=== PATIENT | female | born 1995 | race Caucasian/White ===

== ENCOUNTER 2016-12-18 16:20 | Emergency (ER) | payer OTHER ==
[~2016-12-18] VITALS: Ht 154.9 cm; Wt 67.8 kg
[~2016-12-18 16:20] MED LIST: ALPR0.5T3 PO; DICY1TAB26 PO; PROZ20CA11 PO; ZOFR4TAB3 SL
[2016-12-18 16:28] VITALS: BP 120/81; PULSE 97; RESP 16; TEMP 98.7; O2SAT 97
[2016-12-18 16:59] LABS: BLOOD, URINE TRACE (NEG); GLUCOSE,URINE NEG (NEG); KETONE, URINE NEG (NEG); NITRITE,URINE NEG (NEG); PH, URINE 6.5 (5.0-8.5)
[2016-12-18] MEDS ORDERED: FLUO20CA4 PO (17:01)
[2016-12-18] MEDS ORDERED: ALPR0.5T3 PO (17:01)
[2016-12-18 17:02] LABS: METHOD OF COLLECTION CLEAN CATCH; URINE COLOR YELLOW (YELLW/STRAW)
[2016-12-18 17:04] LABS: COMMENT (UR) CULT NOT INDICATED; CULTURE IF INDICATED CULT NOT INDICATED; RBC, URINE 0-3 /hpf (0-3); SQUAMOUS EPITHELIAL CELL URINE 0-5 /hpf (0-5); WBC, URINE 0-2 /hpf (0-5)
[2016-12-18] MEDS ORDERED: SODIUM CHLOR 0.9% 1000 ML INJ 1,000 ML IV SCH (17:11)
[2016-12-18] MEDS ORDERED: SODIUM CHLORIDE 0.9% FLUSH 5 ML FLUSH IVF PRN (17:15)
--- NOTE | 2016-12-18 17:17 | PD ---
HPI Chief Complaint: Abdominal Pain Time Seen by Provider: 16:52 Travel History International Travel<30 days: No Contact w/Intl Traveler<30days: No Traveled to known affect area: No History of Present Illness HPI Patient is a 21-year-old female who presents to emergency room for evaluation of pelvic pain and cramping for the past 3 days. Patient reports that she has had intermittent pelvic pain and cramping with some vaginal discharge or bleeding for the past 3 days. Patient reports that she is concerned as she had an 3 weeks ago, reports that she has been sexually active and has not been using any form of contraceptives. Patient reports concern that she may be . Patient with no fevers or chills. Patient with no nausea or vomiting. Patient reports that she has been having a few episodes of diarrhea for the past few days. NO sick contacts. No other c/o. PFSH Past Medical History Anxiety: Yes Diminished Hearing: No Genitourinary: Yes (l sided cyst) Headaches: Yes Reproductive: Yes (IRREGULAR PERIODS) Immunizations Current: Yes Influenza Vaccination: No ?: Not LMP: 09/20/16 - Menopausal: No : 1 Para: 0 : 1 Past Surgical History Other Surgery: Yes ( 3 weeks ago) Family History Family History: Negative Social History Alcohol Use: Yes (occ.) Tobacco Use: Yes (1/2ppd) Substance Use: No Allergies-Medications (Allergen,Severity, Reaction): Coded Allergies: Sulfa (Verified Allergy, Severe, Rash, 12/18/16) Reported Meds & Prescriptions Reported Meds & Active Scripts Active Ibuprofen 600 Mg Tab 600 Mg PO Q6H PRN Flagyl (Metronidazole) 500 Mg Tab 500 Mg PO BID 7 Days Reported Fluoxetine (Fluoxetine HCl) 20 Mg Cap 20 Mg PO DAILY Alprazolam 0.5 Mg Tab 0.5 Mg PO Q6H PRN Review of Systems General / Constitutional: No: Fever Eyes: No: Visual changes HENT: No: Headaches Cardiovascular: No: Chest Pain or Discomfort Respiratory: No: Shortness of Breath Gastrointestinal: Positive: Diarrhea, Abdominal Pain, No: Nausea, Vomiting, Constipation Genitourinary: Positive: Pelvic Pain, Discharge, Vaginal Bleeding, No: Urgency , Frequency, Dysuria Musculoskeletal: No: Pain Skin: No Rash Neurologic: No: Weakness Psychiatric: No: Depression Endocrine: No: Polydipsia Hematologic/Lymphatic: No: Easy Bruising Physical Exam Narrative GENERAL: No acute distress, nontoxic SKIN: Warm and dry. HEAD: Atraumatic. Normocephalic. EYES: Pupils equal and round. No scleral icterus. No injection or drainage. ENT: No nasal bleeding or discharge. Mucous membranes pink and moist. NECK: Trachea midline. No JVD. CARDIOVASCULAR: Regular rate and rhythm. No murmur appreciated. RESPIRATORY: No accessory muscle use. Clear to auscultation. Breath sounds equal bilaterally. GASTROINTESTINAL: Abdomen soft, non-tender, nondistended. Patient with increased pelvic tenderness : Exam performed with RN at bedside patient was placed in stirrups, medium speculum in place, there is mild blood around vaginal vault, cervix is closed, no CMT or adnexal tenderness MUSCULOSKELETAL: No obvious deformities. No clubbing. No cyanosis. No edema. NEUROLOGICAL: Awake and alert. Normal speech. PSYCHIATRIC: Appropriate mood and affect; insight and judgment normal. Data Data Last Documented VS Vital Signs Date Time Temp Pulse Resp B/P Pulse Ox O2 Delivery O2 Flow Rate FiO2 12/18/16 16:28 98.7 97 16 120/81 97 Orders Urinalysis - C+S If Indicated (12/18/16 16:35) Ed Urine Pregnancytest Poc (12/18/16 16:36) Complete Blood Count With Diff (12/18/16 17:11) Comprehensive Metabolic Panel (12/18/16 17:11) Prothrombin Time / Inr (Pt) (12/18/16 17:11) Act Partial Throm Time (Ptt) (12/18/16 17:11) Iv Access Insert/Monitor (12/18/16 17:11) Oximetry (12/18/16 17:11) Sodium Chlor 0.9% 1000 Ml Inj (Ns 1000 M (12/18/16 17:11) Sodium Chloride 0.9% Flush (Ns Flush) (12/18/16 17:15) Gc And Chlamydia Pcr (12/18/16 17:13) Wet Prep Profile (12/18/16 17:13) Metronidazole (Flagyl) (12/18/16 18:30) Us Pelvis Comp W Transvaginal (12/18/16 ) Labs Laboratory Tests Test 12/18/16 12/18/16 16:35 17:25 Urine Collection Type CLEAN CATCH Urine Color YELLOW Urine Turbidity CLEAR Urine pH 6.5 Urine Specific [place] 1.010 Urine Protein NEG mg/dL Urine Glucose (UA) NEG mg/dL Urine Ketones NEG mg/dL Urine Occult Blood TRACE Urine Nitrite NEG Urine Bilirubin NEG Urine Leukocyte Esterase NEG Urine RBC 0-3 /hpf Urine WBC 0-2 /hpf Urine Squamous Epithelial 0-5 /hpf Cells Microscopic Urinalysis Comment CULT NOT INDICATED White Blood Count 6.6 TH/MM3 Red Blood Count 5.01 MIL/MM3 Hemoglobin 15.0 GM/DL Hematocrit 42.6 % Mean Corpuscular Volume 85.1 FL Mean Corpuscular Hemoglobin 30.0 PG Mean Corpuscular Hemoglobin 35.2 % Concent Red Cell Distribution Width 12.5 % Platelet Count 221 TH/MM3 Mean Platelet Volume 8.4 FL Neutrophils (%) (Auto) 64.9 % Lymphocytes (%) (Auto) 25.0 % Monocytes (%) (Auto) 6.8 % Eosinophils (%) (Auto) 2.6 % Basophils (%) (Auto) 0.7 % Neutrophils # (Auto) 4.2 TH/MM3 Lymphocytes # (Auto) 1.7 TH/MM3 Monocytes # (Auto) 0.5 TH/MM3 Eosinophils # (Auto) 0.2 TH/MM3 Basophils # (Auto) 0.0 TH/MM3 CBC Comment DIFF FINAL Differential Comment Prothrombin Time 10.8 SEC Prothromb Time International 1.0 RATIO Ratio Activated Partial 30.9 SEC Thromboplast Time Clue Cells (Wet Prep) PRESENT Vaginal Trichomonas (Wet Prep) NONE SEEN Vaginal Yeast (Wet Prep) NONE SEEN Sodium Level 142 MEQ/L Potassium Level 4.4 MEQ/L Chloride Level 107 MEQ/L Carbon Dioxide Level 28.5 MEQ/L Anion Gap 7 MEQ/L Blood Urea Nitrogen 9 MG/DL Creatinine 0.78 MG/DL Estimat Glomerular Filtration 94 ML/MIN Rate Random Glucose 79 MG/DL Calcium Level 8.9 MG/DL Total Bilirubin 0.3 MG/DL Aspartate Amino Transf 15 U/L (AST/SGOT) Alanine Aminotransferase 23 U/L (ALT/SGPT) Alkaline Phosphatase 83 U/L Total Protein 6.8 GM/DL Albumin 3.6 GM/DL MDM Medical Decision Making Medical Screen Exam Complete: Yes Emergency Medical Condition: Yes Interpretation(s) Vital Signs Date Time Temp Pulse Resp B/P Pulse Ox O2 Delivery O2 Flow Rate FiO2 12/18/16 16:28 98.7 97 16 120/81 97 Differential Diagnosis Early , retained products of conception, cervicitis, UTI, gastroenteritis Narrative Course Patient is a 21-year-old female who presents to emergency room with complaints of pelvic pain and cramping for the past 3 days. Patient reports that symptoms have been intermittent in nature, reports that she has noticed return of vaginal bleeding after she had medical 3 weeks ago. Patient reports that she is currently sexually active and has not been using contraceptives, reports concern for possible . Discussed with patient need for pelvic exam, will obtain samples for gonorrhea, chlamydia as well as bacterial vaginosis. Patient denies history of STDs in the past, reports that she was evaluated for possible STDs about a month ago, reports that all her cultures were negative. Pelvic ultrasound ordered for further evaluation of possible retained products of conception she does report irregular vaginal bleeding with vaginal discharge cbc: WBC 6.6 Hemoglobin 15 Hematocrit 42.6 Platelets 221 BMP Sodium 142 Chloride 107 Potassium 4.4 Carbon dioxide 28.5 BUN 9 Creatinine 0.79 LFT: wnl UA: trace blood neg leuk esteraste, neg nitries Positive for clue cells, negative for Trichomonas or yeast infection Gonorrhea/chlamydia PCR Pending Pelvic ultrasound with bilateral ovarian cysts measuring up to 6 cm with moderate amount of fluid in the cul-de-sac. There is an abnormal appearance of the endometrium. Patient well-appearing this time, patient with abdomen which is soft, nontender, nondistended, no peritoneal signs. Pain most likely from ovarian cysts. A copy of patient's ultrasound report was given to patient. Patient will follow-up with her industrial conveyor belt repairer and will return to ER as needed. Signs and symptoms of when to return to emergency room was reviewed with patient. Diagnosis Primary Impression: Bacterial vaginosis Additional Impression: Pelvic pain Patient Instructions: General Instructions Additional Instructions: Please give patient a copy of her lab work as well as her ultrasound report at discharge Return to ER as needed Please follow-up with all cultures from today Please follow-up with your industrial conveyor belt repairer as soon as possible Return to emergency room if symptoms persist or worsen Please bring your lab work as well as your ultrasound report to doctor's office for follow-up on all studies from today Med/Other Pt SpecificInfo: Prescription(s) given Scripts Ibuprofen 600 Mg Utt169 Mg PO Q6H PRN (Pain/Inflammation) #40 TAB Ref 0 Prov:Frances Juarez DO 12/18/16 Metronidazole (Flagyl)500 Mg Acw052 Mg PO BID 7 Days Ref 0 Prov:Frances Juarez DO 12/18/16 Disposition: 01 DISCHARGE HOME Condition: Stable Frances Juarez DO Dec 18, 2016 17:16
[2016-12-18 17:37] LABS: AUTOMATED NEUTROPHIL # 4.2 TH/MM3 (1.8-7.7); BASOPHIL % 0.7 % (0.0-2.0); EOSINOPHIL # 0.2 TH/MM3 (0-0.4); EOSINOPHIL % 2.6 % (0.0-4.0); HEMATOCRIT 42.6 % (35.0-46.0); HEMO FLAGS DIFF FINAL; LYMPHOCYTE # 1.7 TH/MM3 (1.0-4.8); MEAN CELL VOLUME 85.1 FL (80.0-100.0); MEAN CORPUSCULAR HGB CONC 35.2 % (32.0-36.0); MONO % 6.8 % (0.0-8.0); NEUT % 64.9 % (16.0-70.0); PLATELET COUNT 221 TH/MM3 (150-450); RED BLOOD COUNT 5.01 MIL/MM3 (4.00-5.30); RED CELL DISTRIBUTION WIDTH 12.5 % (11.6-17.2); WHITE BLOOD COUNT 6.6 TH/MM3 (4.0-11.0)
[2016-12-18 17:44] LABS: CHLORIDE 107 MEQ/L (98-107); POTASSIUM 4.4 MEQ/L (3.5-5.1); SODIUM (NA) 142 MEQ/L (136-145)
[2016-12-18 17:48] LABS: ANION GAP 7 MEQ/L (5-15); BICARBONATE 28.5 MEQ/L (21.0-32.0); BLOOD UREA NITROGEN 9 MG/DL (7-18)
[2016-12-18 17:49] LABS: APTT (PATIENT) 30.9 SEC (24.3-30.1); PROTHROMBIN TIME - PATIENT 10.8 SEC (9.8-11.6)
[2016-12-18 17:51] LABS: ALT (GPT) 23 U/L (9-42); AST (GOT) 15 U/L (16-38); GLOMERULAR FILTRATION RATE 94 ML/MIN (>89)
[2016-12-18 17:52] LABS: TOTAL BILIRUBIN ADULT 0.3 MG/DL (0.2-1.0)
[2016-12-18 17:54] LABS: ALKALINE PHOSPHATASE 83 U/L (45-117)
[2016-12-18] MEDS ORDERED: metroNIDAZOLE 500 MG TAB PO ONE (18:30)
[2016-12-18] MEDS ORDERED: METR-1 PO (18:46)
[2016-12-18] MEDS ORDERED: IBUP-232 PO (18:46)
--- NOTE | 2016-12-18 18:48 | RADHPO ---
EXAM DATE/TIME: 12/18/2016 17:52 [facility] COMPARISON: No previous studies available for comparison. INDICATIONS : Pelvic pain and spotting. MEDICAL HISTORY : Headaches. Irregular periods. Ovarian cysts. Anxiety. SURGICAL HISTORY : . ENCOUNTER: Initial ACUITY: 3 days PAIN SCORE: 4/10 LOCATION: Bilateral pelvis MEASUREMENTS: UTERUS: 8.7 x 5.0 x 3.8 cm ENDOMETRIAL STRIPE: 10 mm RIGHT OVARY: 5.2 x 3.7 x 4.0 cm LEFT OVARY: 6.0 x 6.5 x 6.4 cm FINDINGS: UTERUS: The myometrium has homogeneous echotexture without mass. There is a heterogeneous echotexture to the endometrium in the fundus with some focal areas of slightly greater hyperechogenicity superimposed up on a hyper echogenic area. There is some fluid seen within the lower uterine segment. RIGHT OVARY: There is a dominant cyst which contains an internal septum measuring 3.3 x 3.7 x 3.4 cm. No flow sig nal within or about the color Doppler. LEFT OVARY: There is a dominant anechoic smooth margins cyst without flow on color Doppler which measures 5.8 x 5 .7 x 6.0 cm. MISCELLANEOUS: Moderate amount of free fluid in the cul-de-sac. CONCLUSION: 1. Bilateral ovarian cysts measuring up to 6 cm with moderate amount of free fluid in the cul-de-sac. 2. Abnormal appearance of the endometrium with heterogeneous hyperechogenicity in the body and fundal region and fluid in the lower uterine endometrium. The Ruben Ryder MD on December 18, 2016 at 18:43 Board Certified Radiologist. This report was verified electronically.
[2016-12-18 19:15] VITALS: BP 126/65; TEMP 98.9
[2016-12-18 23:50] LABS: CHLAMYDIA PCR NOT DETECTED (NOT DETECT); NEISSERIA PCR NOT DETECTED (NOT DETECT)
== END 2016-12-18 19:36 | disposition home or self-care (01) ==
LOC: PHED 16:20
DX: N76.0 Acute vaginitis (principal)
CPT/HCPCS: 76830; 76856; 80053; 81001; 84703; 85025; 85610; 85730; 87210; 87491; 87591; 99284; J7030

== ENCOUNTER 2017-04-05 19:46 | Emergency (ER) | payer OTHER ==
[~2017-04-05] VITALS: Ht 154.9 cm; Wt 63.4 kg
[~2017-04-05 19:46] MED LIST changes: -DICY1TAB26 PO; +FLUO20CA4 PO; +IBUP-232 PO; +METR-1 PO; -PROZ20CA11 PO; -ZOFR4TAB3 SL
[2017-04-05 19:53] VITALS: BP 133/89; PULSE 64; RESP 16; TEMP 98; O2SAT 100
--- NOTE | 2017-04-05 20:05 | PD ---
HPI Chief Complaint: GI Complaint Time Seen by Provider: 20:03 Travel History International Travel<30 days: No Contact w/Intl Traveler<30days: No Traveled to known affect area: No History of Present Illness HPI 21 yo F irregular menstruation, DC 3 weeks prior, c/o 1 day periumbilical and RLQ pain. Pt with N/V today with a few episodes of vomiting and a few episodes diarrhea, both nonbloody. No fever. No similar episodes. She has been performing very strenuous workouts lately and thinks she might have developed a hernia or a muscle strain. No change in urinary habits. No abnormal vaginal discharge or bleed. Onset gradual. Patient reports prior episodes of ovarian cysts felt different. PFSH Past Medical History Anxiety: Yes Diminished Hearing: No Genitourinary: Yes (l sided cyst) Headaches: Yes Reproductive: Yes (IRREGULAR PERIODS) Immunizations Current: Yes ?: Not LMP: NOW Menopausal: No : 1 Para: 0 : 1 Past Surgical History Other Surgery: Yes ( 3 weeks ago) Social History Alcohol Use: Yes (occ.) Tobacco Use: Yes (1/2ppd) Substance Use: No Allergies-Medications (Allergen,Severity, Reaction): Coded Allergies: Sulfa (Verified Allergy, Severe, Rash, 04/05/17) Reported Meds & Prescriptions Reported Meds & Active Scripts Active Zofran Odt (Ondansetron Odt) 4 Mg Tab 4 Mg SL Q8HR PRN Ibuprofen 600 Mg Tab 600 Mg PO Q6H PRN Flagyl (Metronidazole) 500 Mg Tab 500 Mg PO BID 7 Days Reported Fluoxetine (Fluoxetine HCl) 20 Mg Cap 20 Mg PO DAILY Alprazolam 0.5 Mg Tab 0.5 Mg PO Q6H PRN Review of Systems Except as stated in HPI: all other systems reviewed are Neg General / Constitutional: No: Fever Gastrointestinal: Positive: Nausea, Vomiting, Diarrhea, Abdominal Pain Genitourinary: No: Urgency, Frequency, Flank Pain, Discharge, Vaginal Bleeding Physical Exam Narrative GENERAL: 2-year-old female pleasant well-nourished well-developed no acute distress SKIN: Focused skin assessment warm/dry. HEAD: Atraumatic. Normocephalic. EYES: Pupils equal and round. No scleral icterus. No injection or drainage. ENT: No nasal bleeding or discharge. Mucous membranes pink and moist. NECK: Trachea midline. No JVD. CARDIOVASCULAR: Regular rate and rhythm. No murmur appreciated. RESPIRATORY: No accessory muscle use. Clear to auscultation. Breath sounds equal bilaterally. GASTROINTESTINAL: The abdomen is soft. With deep palpation in the periumbilical and right lower quadrant the patient does not have guarding or rebound. She does state that it is painful. Remainder of the abdomen is completely benign. MUSCULOSKELETAL: No obvious deformities. No clubbing. No cyanosis. No edema. NEUROLOGICAL: Awake and alert. No obvious cranial nerve deficits. Motor grossly within normal limits. Normal speech. PSYCHIATRIC: Appropriate mood and affect; insight and judgment normal. Data Data Last Documented VS Vital Signs Date Time Temp Pulse Resp B/P Pulse Ox O2 Delivery O2 Flow Rate FiO2 04/05/17 19:53 98.0 64 16 133/89 100 Vital signs reviewed Orders Ondansetron Odt (Zofran Odt) (04/05/17 20:30) Ed Urine Pregnancytest Poc (04/05/17 20:20) [facility] Medical Decision Making Medical Screen Exam Complete: Yes Emergency Medical Condition: Yes Medical Record Reviewed: Yes Differential Diagnosis Constipation, Gastritis, Acute Cholecystitis, Biliary Colic, Pancreatitis, CHAVEZ , Hepatitis, Bowel Obstruction, Cystitis, Mesenteric Ischemia, AAA, Appendicitis , Renal Stone/Hydronephrosis, GERD, perforated viscous Narrative Course Point of care negative The patient's exam is sufficiently benign to render pretest probability sufficiently low to reasonably safely defer CT scan of the abdomen and pelvis right now. We had a discussion about the specific return precautions and the patient verbalized understanding. We will prescribe Zofran prescription to ensure good hydration. Diagnosis Primary Impression: Abdominal pain Qualified Code: R10.33 - Periumbilical abdominal pain Additional Impression: Nausea, vomiting and diarrhea Referrals: Primary Care Physician 1 week Additional Instructions: You have a choice when it comes to health care, and we are glad that you chose [facility]. Hopefully, we have met your expectations on today's visit. You are welcome to return to [facility] at any time, as we are committed to meeting the health care needs of our community. RETURN TO ER IF YOU DEVELOP WORSENING PAIN, IF THE PAIN BECOMES CONSTANT AND SEVERE, IF YOU DEVELOP A FEVER OR IF IN YOUR JUDGEMENT THINGS SEEM TO BE GETTING WORSE. PROMPTLY RETURN ESPECIALLY IF THINGS WORSEN OVER THE NEXT 6-12 HOURS. Med/Other Pt SpecificInfo: Prescription(s) given Scripts Ondansetron Odt (Zofran Odt)4 Mg Tab4 Mg SL Q8HR PRN (Nausea/Vomiting) #6 TAB Ref 0 Prov:Jorden Narayan MD 04/05/17 Disposition: 01 DISCHARGE HOME Condition: Stable Jorden Narayan MD April 05, 2017 20:05
[2017-04-05] MEDS ORDERED: ZOFR4TAB3 SL (20:18)
[2017-04-05] MEDS ORDERED: ONDANSETRON ODT 4 MG TAB PO ONE (20:30)
== END 2017-04-05 20:52 | disposition home or self-care (01) ==
LOC: PHED 19:46
DX: R11.2 Nausea with vomiting, unspecified (principal); R19.7 Diarrhea, unspecified; R10.33 Periumbilical pain; N92.6 Irregular menstruation, unspecified; F41.9 Anxiety disorder, unspecified
CPT/HCPCS: 84703; 99283

== ENCOUNTER 2017-05-09 17:14 | Emergency (ER) | payer OTHER ==
[~2017-05-09] VITALS: Ht 154.9 cm; Wt 62.0 kg
[~2017-05-09 17:14] MED LIST changes: -METR-1 PO; +ZOFR4TAB3 SL
[2017-05-09 17:17] VITALS: BP 138/104; PULSE 80; RESP 16; TEMP 98.4; O2SAT 99
[2017-05-09] MEDS ORDERED: SODIUM CHLOR 0.9% 1000 ML INJ 1,000 ML IV SCH (17:33)
--- NOTE | 2017-05-09 17:39 | PD ---
HPI Chief Complaint: GI Complaint Time Seen by Provider: 17:30 Travel History International Travel<30 days: No Contact w/Intl Traveler<30days: No Traveled to known affect area: No History of Present Illness HPI 30-year-old female here for evaluation of abdominal pain, nausea, vomiting. Patient reports that symptoms have been going on for last month, worse over the last 4 days. She describes a burning sensation in her epigastric region that radiates up into her chest. She also reports that there has been some blood in her emesis. No history of abdominal surgeries. She is sexually active with one partner and is on oral control. States that she had a Pap smear last month as well as STD testing which were negative according to the patient. No fevers or chills. PFSH Past Medical History Hx Anticoagulant Therapy: No Anxiety: Yes Depression: Yes Diabetes: No Diminished Hearing: No Genitourinary: Yes (l sided cyst) Headaches: Yes Reproductive: Yes (IRREGULAR PERIODS, FIBROIDS) Immunizations Current: Yes ?: Not Menopausal: No : 1 Para: 0 : 1 Past Surgical History Other Surgery: Yes ( 3 weeks ago) Social History Alcohol Use: Yes (SOCIALLY) Tobacco Use: Yes (1/2ppd) Substance Use: No Allergies-Medications (Allergen,Severity, Reaction): Coded Allergies: Sulfa (Verified Allergy, Severe, Rash, 05/09/17) Reported Meds & Prescriptions Reported Meds & Active Scripts Active Reported Fluoxetine (Fluoxetine HCl) 20 Mg Capsule 20 Mg PO DAILY Alprazolam 0.5 Mg Tab 0.5 Mg PO Q6H PRN Review of Systems Except as stated in HPI: all other systems reviewed are Neg Physical Exam Narrative GENERAL: Well-developed, well-nourished, comfortable, no acute distress. SKIN: Focused skin assessment warm/dry. No rash. HEAD: Atraumatic. Normocephalic. EYES: Pupils equal and round. No scleral icterus. No injection or drainage. ENT: Mucous membranes pink and moist. NECK: Trachea midline. No JVD. CARDIOVASCULAR: Regular rate and rhythm. RESPIRATORY: No accessory muscle use. Clear to auscultation. Breath sounds equal bilaterally. GASTROINTESTINAL: Abdomen soft, nondistended. Mild epigastric tenderness without peritoneal signs. Rest of abdomen is soft and nontender. Normal bowel sounds. MUSCULOSKELETAL: No obvious deformities. No clubbing. No cyanosis. No edema. NEUROLOGICAL: Awake and alert. No obvious cranial nerve deficits. Motor grossly within normal limits. Normal speech. PSYCHIATRIC: Appropriate mood and affect; insight and judgment normal. Data Data Last Documented VS Vital Signs Date Time Temp Pulse Resp B/P Pulse Ox O2 Delivery O2 Flow Rate FiO2 05/09/17 18:10 100 05/09/17 17:17 98.4 80 16 138/104 Orders Beta Hcg (Quant/Titer) (05/09/17 17:33) Complete Blood Count With Diff (05/09/17 17:33) Comprehensive Metabolic Panel (05/09/17 17:33) Lipase (05/09/17 17:33) Prothrombin Time / Inr (Pt) (05/09/17 17:33) Act Partial Throm Time (Ptt) (05/09/17 17:33) Urinalysis - C+S If Indicated (05/09/17 17:33) Iv Access Insert/Monitor (05/09/17 17:33) Ecg Monitoring (05/09/17 17:33) Oximetry (05/09/17 17:33) Ondansetron Inj (Zofran Inj) (05/09/17 17:45) Pantoprazole Inj (Protonix Inj) (05/09/17 17:45) Sodium Chlor 0.9% 1000 Ml Inj (Ns 1000 M (05/09/17 17:33) Sodium Chloride 0.9% Flush (Ns Flush) (05/09/17 17:45) Al-Mag Hy-Si 40-40-4 Mg/Ml Liq (Mag-Al P (05/09/17 17:45) Lidocaine 2% Viscous (Xylocaine 2% Visco (05/09/17 17:45) Labs Laboratory Tests Test 05/09/17 05/09/17 17:40 17:47 Urine Color STRAW Urine Turbidity CLEAR Urine pH 6.5 Urine Specific [place] 1.003 Urine Protein NEG mg/dL Urine Glucose (UA) NEG mg/dL Urine Ketones NEG mg/dL Urine Occult Blood NEG Urine Nitrite NEG Urine Bilirubin NEG Urine Leukocyte Esterase NEG Urine Squamous Epithelial 0-5 /hpf Cells Microscopic Urinalysis Comment CULT NOT INDICATED White Blood Count 7.2 TH/MM3 Red Blood Count 5.01 MIL/MM3 Hemoglobin 14.7 GM/DL Hematocrit 42.3 % Mean Corpuscular Volume 84.5 FL Mean Corpuscular Hemoglobin 29.4 PG Mean Corpuscular Hemoglobin 34.8 % Concent Red Cell Distribution Width 12.0 % Platelet Count 230 TH/MM3 Mean Platelet Volume 8.1 FL Neutrophils (%) (Auto) 68.8 % Lymphocytes (%) (Auto) 24.9 % Monocytes (%) (Auto) 5.1 % Eosinophils (%) (Auto) 0.5 % Basophils (%) (Auto) 0.7 % Neutrophils # (Auto) 4.9 TH/MM3 Lymphocytes # (Auto) 1.8 TH/MM3 Monocytes # (Auto) 0.4 TH/MM3 Eosinophils # (Auto) 0.0 TH/MM3 Basophils # (Auto) 0.1 TH/MM3 CBC Comment DIFF FINAL Differential Comment Sodium Level 142 MEQ/L Potassium Level 3.6 MEQ/L Chloride Level 106 MEQ/L Carbon Dioxide Level 25.7 MEQ/L Anion Gap 10 MEQ/L Blood Urea Nitrogen 5 MG/DL Creatinine 0.70 MG/DL Estimat Glomerular Filtration 106 ML/MIN Rate Random Glucose 84 MG/DL Calcium Level 9.1 MG/DL Total Bilirubin 0.5 MG/DL Aspartate Amino Transf 21 U/L (AST/SGOT) Alanine Aminotransferase 30 U/L (ALT/SGPT) Alkaline Phosphatase 70 U/L Total Protein 7.1 GM/DL Albumin 3.8 GM/DL Lipase 285 U/L Human Chorionic Gonadotropin, LESS THAN 1 Quant MIU/ML [facility] Medical Decision Making Medical Screen Exam Complete: Yes Emergency Medical Condition: Yes Medical Record Reviewed: Yes Differential Diagnosis Gastritis, GERD, peptic ulcer disease, hepatobiliary disease, bowel obstruction less likely, ACS unlikely, Boerhaave syndrome unlikely, Kathia-Agrawal tears Narrative Course Vital signs reviewed. CBC shows WBC 7.2, hemoglobin 14.7, hematocrit 42.3, platelets 230. CMP is unremarkable. Lipase is 285. Beta hCG is negative. UA is not suggestive of UTI. Patient was given a liter of normal saline IV, IV Zofran, IV Protonix, and a GI cocktail, and is feeling improved. She is resting comfortably playing on her cell phone. Her abdominal exam shows no peritoneal signs. She is in no distress whatsoever. At this point my plan is to discharge her home and have her follow-up as an outpatient with her primary care physician as well as a lumber sorter this week. I will start her on Protonix. She was informed on when to return to the emergency department. She verbalizes understanding and agreement with plan. Diagnosis Primary Impression: Nausea and vomiting Qualified Code: R11.2 - Non-intractable vomiting with nausea, unspecified vomiting type Additional Impression: Gastritis Qualified Code: K29.71 - Gastritis with hemorrhage, unspecified chronicity, unspecified gastritis type Referrals: Kodak Nolasco MD 1 week Manager Pediatric Primary Care Physician 3 days Additional Instructions: Follow-up with a primary care physician this week. Follow-up with lumber sorter Dr. Nolasco or a lumber sorter of your choice this week. Return to the emergency department for worsening symptoms or any other concerns. Scripts Pantoprazole (Protonix)40 Mg Tab40 Mg PO DAILY #30 TAB Ref 0 Prov:Roberto Diaz MD 05/09/17 Ondansetron Odt (Zofran Odt)4 Mg Tab4 Mg SL Q6HR PRN (Nausea/Vomiting) #20 TAB Ref 0 Prov:Roberto Diaz MD 05/09/17 Roberto Diaz MD May 09, 2017 17:39
[2017-05-09] MEDS ORDERED: ONDANSETRON HCL 4 MG/2 ML VIAL IVP ONE (17:45)
[2017-05-09] MEDS ORDERED: PANTOPRAZOLE SODIUM 40 MG VIAL IVP ONE (17:45)
[2017-05-09] MEDS ORDERED: ALUMINUM/MAGNESIUM/SIMETH 30 ML CUP PO ONE (17:45)
[2017-05-09] MEDS ORDERED: LIDOCAINE VISCOUS 2% SOLN 15 ML UDC PO ONE (17:45)
[2017-05-09] MEDS ORDERED: SODIUM CHLORIDE 0.9% FLUSH 10 ML FLUSH IV FLUSH PRN (17:45)
[2017-05-09 17:57] LABS: AUTOMATED NEUTROPHIL # 4.9 TH/MM3 (1.8-7.7); BASOPHIL # 0.1 TH/MM3 (0-0.2); BASOPHIL % 0.7 % (0.0-2.0); EOSINOPHIL % 0.5 % (0.0-4.0); HEMATOCRIT 42.3 % (35.0-46.0); HEMO FLAGS DIFF FINAL; LYMPH % 24.9 % (9.0-44.0); LYMPHOCYTE # 1.8 TH/MM3 (1.0-4.8); MEAN CELL VOLUME 84.5 FL (80.0-100.0); MEAN CORPUSCULAR HEMOGLOBIN 29.4 PG (27.0-34.0); MEAN CORPUSCULAR HGB CONC 34.8 % (32.0-36.0); MONO % 5.1 % (0.0-8.0); NEUT % 68.8 % (16.0-70.0); PLATELET COUNT 230 TH/MM3 (150-450); RED BLOOD COUNT 5.01 MIL/MM3 (4.00-5.30); WHITE BLOOD COUNT 7.2 TH/MM3 (4.0-11.0)
[2017-05-09 17:58] LABS: BLOOD, URINE NEG (NEG); GLUCOSE,URINE NEG (NEG); KETONE, URINE NEG (NEG); NITRITE,URINE NEG (NEG); PH, URINE 6.5 (5.0-8.5)
[2017-05-09 18:02] LABS: URINE COLOR STRAW (YELLW/STRAW)
[2017-05-09 18:05] LABS: CHLORIDE 106 MEQ/L (98-107); POTASSIUM 3.6 MEQ/L (3.5-5.1); SODIUM (NA) 142 MEQ/L (136-145)
[2017-05-09 18:07] LABS: COMMENT (UR) CULT NOT INDICATED; CULTURE IF INDICATED CULT NOT INDICATED; SQUAMOUS EPITHELIAL CELL URINE 0-5 /hpf (0-5)
[2017-05-09 18:09] LABS: ANION GAP 10 MEQ/L (5-15); BICARBONATE 25.7 MEQ/L (21.0-32.0); BLOOD UREA NITROGEN 5 MG/DL (7-18)
[2017-05-09 18:10] VITALS: O2SAT 100
[2017-05-09 18:12] LABS: ALT (GPT) 30 U/L (10-53); AST (GOT) 21 U/L (15-37); GLOMERULAR FILTRATION RATE 106 ML/MIN (>89)
[2017-05-09 18:13] LABS: TOTAL BILIRUBIN ADULT 0.5 MG/DL (0.2-1.0)
[2017-05-09 18:15] LABS: ALKALINE PHOSPHATASE 70 U/L (45-117)
[2017-05-09] MEDS ORDERED: FLUO20CA12 PO (18:15)
[2017-05-09 18:17] LABS: BETA HCG QUANT LESS THAN 1 MIU/ML (0-5)
[2017-05-09] MEDS ORDERED: ZOFR4TAB3 SL (18:39)
[2017-05-09] MEDS ORDERED: PROT40TA PO (18:39)
[2017-05-09 18:40] LABS: APTT (PATIENT) 29.2 SEC (24.3-30.1); PROTHROMBIN TIME - PATIENT 10.9 SEC (9.8-11.6)
[2017-05-09 18:58] VITALS: BP 144/96; PULSE 74; RESP 14; O2SAT 100
== END 2017-05-09 19:20 | disposition home or self-care (01) ==
LOC: PHED 17:14
DX: K29.71 Gastritis, unspecified, with bleeding (principal); F17.210 Nicotine dependence, cigarettes, uncomplicated
CPT/HCPCS: 80053; 81001; 83690; 84702; 85025; 85610; 85730; 96361; 96374; 96375; 99284; C9113; J2405; J7030